=== PATIENT | female | born 1955 | race Caucasian/White ===

== ENCOUNTER 2020-08-19 19:25 | Inpatient (IN) | payer SELFPAY ==
[~2020-08-19] VITALS: Ht 162.5 cm; Wt 90.5 kg
[2020-08-19 19:33] VITALS: BP 158/70
--- NOTE | 2020-08-19 19:34 | NUR ---
PT TO WAITING ROOM AT THIS TIME.VITALS STABLE.
[2020-08-19 20:14] LABS: BASO % 0.4 % (0.0-1.0); EOS % 0.5 % (1.0-4.0); HEMATOCRIT 41.4 % (37.0-47.0); LYMPH # 0.7 10*3/uL (1.3-4.4); MEAN CELL VOLUME 92.4 fl (81.0-99.0); MEAN CORPUSCULAR HGB 30.4 pg (27.0-31.0); MEAN CORPUSCULAR HGB CONC 32.9 g/dl (33.0-37.0); MONO # 0.2 10*3/uL (0.1-1.0); NEUT # 4.7 10*3/uL (2.3-7.9); NEUT % 81.9 % (47.0-73.0); PLATELET COUNT AUTOMATED 224 10*3/uL (130-400); RED BLOOD COUNT 4.48 10*6/uL (4.10-5.10); RED CELL DISTRI WIDTH 13.8 % (0-14.5); WHITE BLOOD COUNT 5.7 10*3/uL (4.8-10.8)
[2020-08-19 20:31] LABS: ALBUMIN 3.2 gm/dl (3.1-4.5); ALKALINE PHOSPHATASE 308 U/L (45-117); BUN 22 mg/dl (7-24); CHLORIDE 109 mmol/L (98-107); CREATININE 0.89 mg/dL (0.55-1.02); LIPASE 188 U/L (73-393); POTASSIUM 4.4 mmol/L (3.5-5.1); SGOT/AST 69 IU/L (3-35); SGPT/ALT 138 U/L (12-78); SODIUM 139 mmol/L (136-145); TOTAL PROTEIN 8.6 gm/dL (6.4-8.2)
--- NOTE | 2020-08-19 21:26 | NUR ---
SPOKE WITH PTS DAUGHTER FLORENTIN PER PT REQUEST. PT HAS PURSE AND CELL PHONE.
--- NOTE | 2020-08-19 21:45 | NUR ---
PT TO CT. CONDITION STABLE.
--- NOTE | 2020-08-19 22:09 | NUR ---
RETURNED FROM CT. CONDITION STABLE. NO COMPLAINTS.
[2020-08-20] VITALS (8 sets, daily range): BP systolic 111–147; BP diastolic 50–78
--- NOTE | 2020-08-20 00:49 | NUR ---
PT MEDICATED PER EMAR FOR ITCHING. PROVIDED PT WITH ADDITIONAL BLANKETS AND A PILLOW FOR COMFORT. NO FURTHER COMPLAINTS.
--- NOTE | 2020-08-20 03:10 | NUR ---
NURSE TO NURSE REPORT GIVEN TO THIS RN.PT RESTING IN BED.IV HEPLOCK IN PLACE.DENIES ANY NEEDS AT THIS TIME.PT REFUSES TO GOWN AT THIS TIME.
--- NOTE | 2020-08-20 06:52 | NUR ---
THIS RN CALLED CONSULT FOR DR YI.WHILE SPEAKING WITH DR YI CALL WAS DISCONNECTED.AWAITING TO SEE IF DR YI RETURNS CALL.
[2020-08-20 07:54] LABS: BASO % 0.6 % (0.0-1.0); EOS # 0.1 10*3/uL (0.0-0.4); EOS % 1.1 % (1.0-4.0); LYMPH % 16.3 % (27.0-41.0); MEAN CELL VOLUME 93.2 fl (81.0-99.0); MEAN CORPUSCULAR HGB 30.5 pg (27.0-31.0); MEAN CORPUSCULAR HGB CONC 32.8 g/dl (33.0-37.0); MEAN PLATELET VOLUME 11.4 fl (9.6-12.3); MONO # 0.6 10*3/uL (0.1-1.0); MONO % 9.4 % (3.0-9.0); NEUT # 4.5 10*3/uL (2.3-7.9); NEUT % 72.3 % (47.0-73.0); PLATELET COUNT AUTOMATED 192 10*3/uL (130-400); RED BLOOD COUNT 4.29 10*6/uL (4.10-5.10); RED CELL DISTRI WIDTH 14.1 % (0-14.5); WHITE BLOOD COUNT 6.2 10*3/uL (4.8-10.8)
[2020-08-20 08:09] LABS: ALKALINE PHOSPHATASE 290 U/L (45-117); BILIRUBIN, DIRECT 6.7 mg/dL (0.0-0.2); BUN 25 mg/dl (7-24); CHLORIDE 112 mmol/L (98-107); CREATININE 0.78 mg/dL (0.55-1.02); POTASSIUM 4.2 mmol/L (3.5-5.1); SGOT/AST 73 IU/L (3-35); SGPT/ALT 142 U/L (12-78); SODIUM 141 mmol/L (136-145); TOTAL PROTEIN 7.9 gm/dL (6.4-8.2)
--- NOTE | 2020-08-20 08:30 | NUR ---
KD CALLED NO ANSWER WILL TRY AGAIN.
--- NOTE | 2020-08-20 09:15 | NUR ---
CALL PLACED TO DR. YI, NO ANSWER LEFT VOICE MAIL FOR CALL BACK, CALL PLACED TO DR. COLLINS ADVISED OF CONSULT.
--- NOTE | 2020-08-20 10:00 | NUR ---
This nurse notified Dr. Dinero of the new consult and he states he is already aware of this patient at this time.
--- NOTE | 2020-08-20 10:06 | NUR ---
This nurse spoke with Dr. Rivera and he states to keep the patient NPO for an ERCP today.
--- NOTE | 2020-08-20 11:05 | NUR ---
PT RESTING WITH HER EYES CLOSED. NO DISTRESS NOTED.
--- NOTE | 2020-08-20 12:15 | NUR ---
PT RESTING WITH HER EYES CLOSED, AWAKENS WITH CARE, PT DENIES ANY PAIN AT THIS TIME, PT WAS GIVEN A GROWN FOR HER ERCP TODAY. PT WAS WANTING TO STAY IN HER CLOTHES, PT WAS AGREEABLE.
--- NOTE | 2020-08-20 17:06 | NUR ---
SPOKE WITH SURGERY PT [facility] IN PRE-OP FOR ERCP. PT HAS A BED 506-2. SURGERY NOTFIED TO TAKE PT TO 506-2, REPORTS CALLED TO [facility].
--- NOTE | 2020-08-20 20:26 | NUR ---
Time: 1999 A 65 year old FEMALE admitted to 5E under services of IESHA MEJIA DO. Pt. arrived via bed from ER. Chief complaint: ELEVATED LFT, RASH. PT FORMS REVIEWED AND COMPLETED. CALL LIGHT SYSTEM REVIEWED AND DEMONSTRATED. PT REPORTS NO HOME MEDS HEIDI GUEVARA
--- NOTE | 2020-08-20 20:30 | NUR ---
ASSESSMENT COMPLETE SEE FLOWSHEET. SPOKE TO AND RECEIVED ORDERS FOR ERCP IN AM, NPO AFTER MIDNIGHT, AND START FLUIDS (0.9 NS) AT 100 ML/HR. CALL LIGHT IN REACH.
[2020-08-21] VITALS (9 sets, daily range): BP systolic 110–156; BP diastolic 68–93
[2020-08-21 07:06] LABS: HEP B CORE AB, IGM Negative (Negative); HEPATITIS B SURFACE AG Negative (Negative); HEPATITIS C VIRUS ANTIBODY 0.2 s/co (0.0-0.9)
--- NOTE | 2020-08-21 07:30 | NUR ---
PT RESTING IN BED. RESPS EASY AND NON LABORED. NO S/S OF DISTRESS NOTED. VSS. WHITE BOARD UPDATED. POC DISCUSSED W PT. A/O X3. REMAINS JAUNDICED. HYPOACTIVE BOWEL SOUNDS.+FLATUS.BM 08/20. IVF INFUSING W/O INCIDENT. DENIES ABD PAIN/DISCOMFORT. WILL CONTINUE TO MONITOR. CALL LIGHT WITHIN REACH.
[2020-08-21 07:40] LABS: ALBUMIN 2.9 gm/dl (3.1-4.5); BUN 27 mg/dl (7-24); CHLORIDE 112 mmol/L (98-107); CREATININE 0.77 mg/dL (0.55-1.02); POTASSIUM 3.9 mmol/L (3.5-5.1); SGOT/AST 83 IU/L (3-35); SGPT/ALT 154 U/L (12-78); SODIUM 142 mmol/L (136-145); TOTAL PROTEIN 7.3 gm/dL (6.4-8.2)
[2020-08-21 07:41] LABS: ALKALINE PHOSPHATASE 271 U/L (45-117)
--- NOTE | 2020-08-21 14:15 | NUR ---
PER DR YI ORDER MRCP FOR SUNDAY, ORDER [id number] AND CEA LEVEL.
--- NOTE | 2020-08-21 14:45 | NUR ---
PT BACK FROM SURGERY. VSS. RESPS EASY AND NON LABORED. WILL CONTINUE TO MONITOR. CALL LIGHT WITHIN REACH.
--- NOTE | 2020-08-21 17:08 | NUR ---
PT MEDICATED W ZOFRAN AND TYLENOL FOR NAUSEA AND ABD DISCOMFORT. WILL MONITOR. CALL LIGHT WITHIN REACH.
--- NOTE | 2020-08-21 18:00 | NUR ---
PT RESTING IN BED. RESPS EASY AND NON LABORED. NO S/S OF DISTRESS NOTED. CALL LIGHT WITHIN REACH.
--- NOTE | 2020-08-21 20:00 | NUR ---
ASSESSMENT COMPLETE SEE FLOWSHEET. COOPERATIVE. NO C/O VOICED. TOOK PO MEDS WITHOUT DIFFICULTY. ALL SAFETY MEASURES IN PLACE. CALL LIGHT IN REACH.
[2020-08-22] VITALS: BP 138/56
[2020-08-22 06:21] LABS: ALBUMIN 2.7 gm/dl (3.1-4.5); BILIRUBIN, DIRECT 4.5 mg/dL (0.0-0.2)
[2020-08-22 06:23] LABS: ALBUMIN 2.7 gm/dl (3.1-4.5); ALKALINE PHOSPHATASE 251 U/L (45-117); BILIRUBIN, DIRECT 4.6 mg/dL (0.0-0.2); BUN 23 mg/dl (7-24); CHLORIDE 111 mmol/L (98-107); CREATININE 0.69 mg/dL (0.55-1.02); POTASSIUM 3.9 mmol/L (3.5-5.1); SGOT/AST 72 IU/L (3-35); SGPT/ALT 140 U/L (12-78); SODIUM 141 mmol/L (136-145); TOTAL PROTEIN 6.9 gm/dL (6.4-8.2)
--- NOTE | 2020-08-22 07:30 | NUR ---
PT RESTING IN BED. RESPS EASY AND NON LABORED. NO S/S OF DISTRESS NOTED. VSS. WHITE BOARD UPDATED. POC DISCUSSED W PT. A/O X3. REMAINS JAUNDICED. NORMOACTIVE BOWEL SOUNDS. PT C/O GAS AND CRAMPS. WILL CONTINUE TO MONITOR. CALL LIGHT WITHIN REACH.
[2020-08-22 08:00] VITALS: BP 116/50
--- NOTE | 2020-08-22 09:10 | NUR ---
PT MEDICATED FOR C/O ABD DISCOMFORT. PT STATES IT HAS BEEN HURTING LIKE THIS SINCE YESTERDAY AND SHE COULDNT SLEEP ALL NIGHT. STATES THAT SHE CANNOT DESCRIBE THE PAIN BUT IT "IS KILLNG HER". WILL CONTINUE TO MONITOR FOR RELIEF. RESPS EASY AND NON LABORED. RESTING IN BED WATCHING TV. CALL LIGHT WITHIN REACH.
--- NOTE | 2020-08-22 10:10 | NUR ---
MEDICATION APPEARS EFFECTIVE. PT RESTING IN BED. WILL CONTINUE TO MONITOR. CALL LIGHT WITHIN REACH.
--- NOTE | 2020-08-22 10:19 | NUR ---
DR LOPEZ INTO SEE PT
[2020-08-22 12:00] VITALS: BP 125/60
--- NOTE | 2020-08-22 12:58 | NUR ---
Patient resting quietly with no c/o discomfort. Respirations easy and regular. Vital signs stable. No overt distress. NO S/S OF DISTRESS NOTED. SLEEPING IN ROOM. WILL CONTINUE TO MONITOR . CALL LIGHT WITHIN REACH. HISSOM,WILBUR
[2020-08-22 16:00] VITALS: BP 116/55
--- NOTE | 2020-08-22 17:43 | NUR ---
PT SITTING UP IN ROOM. RESPS EASY AND NON LABORED. NO S/S OF DISTRESS NOTED. PT STATES THAT THE DILAUDID HELPED HER ALL DAY TODAY AND THAT SHE IS NO LONGER IN PAIN AT THIS TIME. WILL CONTINUE TO MONITOR. CALL LIGHT WITHIN REACH.
--- NOTE | 2020-08-22 19:45 | NUR ---
PATIENT RESTING IN BED. DENIES ANY NEEDS/COMPLAINTS. ASSESSMENT COMPLETE. CALL LIGHT IN REACH.
[2020-08-22 20:00] VITALS: BP 113/62
[2020-08-23] VITALS: BP 143/56
--- NOTE | 2020-08-23 03:16 | NUR ---
24 HR chart check completed.
[2020-08-23 06:35] LABS: CHLORIDE 109 mmol/L (98-107); POTASSIUM 3.7 mmol/L (3.5-5.1); SODIUM 138 mmol/L (136-145)
[2020-08-23 06:44] LABS: ALBUMIN 2.6 gm/dl (3.1-4.5); ALKALINE PHOSPHATASE 233 U/L (45-117); BILIRUBIN, DIRECT 3.5 mg/dL (0.0-0.2); BUN 18 mg/dl (7-24); CREATININE 0.53 mg/dL (0.55-1.02); SGOT/AST 41 IU/L (3-35); SGPT/ALT 98 U/L (12-78); TOTAL PROTEIN 6.6 gm/dL (6.4-8.2)
--- NOTE | 2020-08-23 07:30 | NUR ---
PT RESTING IN BED. RESPS EASY AND NON LABORED. NO S/S OF DISTRESS NOTED. VSS. WHITE BOARD UPDATED. POC DISCUSSED W PT. A/O X3. JAUNDICE IMPROVED TODAY. LFT TRENDING DOWN.DENIES ABD PAIN, NO NVCD,NT,ND.NORMOACTIVE BS. BM 08/22. MRCP THIS MORNING. WILL CONTINUE TO MONITOR. CALL LIGHT WITHIN REACH. IVF INFUSING W/O INCIDENT.
[2020-08-23 08:00] VITALS: BP 124/66
--- NOTE | 2020-08-23 09:00 | NUR ---
Disk Sander in to talk to patient. Patient states lives at home with her . There are 0 steps in the home. Physician: no family physician [facility]acy: [facility] Home health services: none Patient's level of ADLs: INDEPENDENT Patient has working utilities: yes DME: none Follow-up physician's appointment after d/c: will be made by the hospitalist nurse director upon discharge Does patient want to access PORTAL?: no Discharge plan discussed with patient. She lives at home with her . She states she is independent in her ADLs and ambulation. Discussed home health care services and she declines. CM will continue to follow for any discharge planning needs. When medically stable she will be discharged to home. She states her daughter will provide transportation on discharge. HARESH SPENCE
--- NOTE | 2020-08-23 09:36 | NUR ---
PT TAKEN OFF FLOOR FOR MRCP
--- NOTE | 2020-08-23 09:45 | NUR ---
PER DR YI CALL W MRCP RESULTS.
--- NOTE | 2020-08-23 11:17 | NUR ---
DR COLLINS ON FLOOR TO SEE PT, STATES PT NEEDS TRANSFERRED. WILL PASS ALONG
--- NOTE | 2020-08-23 11:30 | NUR ---
Spoke to Cassandra in [facility] re: self pay. She states she will see patient today.
[2020-08-23 12:00] VITALS: BP 130/68
--- NOTE | 2020-08-23 14:58 | NUR ---
RADIOLOGY CALLED AGAIN REGARDING MRI NEEDING READ.
--- NOTE | 2020-08-23 15:56 | NUR ---
Patient resting quietly with no c/o discomfort. Respirations easy and regular. Vital signs stable. No overt distress. HISSOM,WILBUR
[2020-08-23 16:00] VITALS: BP 131/56
--- NOTE | 2020-08-23 17:00 | NUR ---
CALLED [facility] REGARDING MRI STILL NOT BEING READ. STATE THEY WILL HAVE IT READ.
--- NOTE | 2020-08-23 19:59 | NUR ---
24 HR chart check completed.
[2020-08-23 20:00] VITALS: BP 127/63
--- NOTE | 2020-08-23 21:00 | NUR ---
SLEEPING, AWAKENS EASILY. RESPIRATIONS EASY. LUNGS DIMINISHED, CLEAR. PULSE OX 98% RA. SCDS PRESENT AT BEDSIDE BUT NOT IN USE PER PT REQUEST. IV FLUIDS RECONNECTED AT THIS TIME AND INFUSING PER ORDER. CALL LIGHT WITHIN REACH. NO VOICED COMPLAINTS
[2020-08-24] VITALS: BP 131/60
--- NOTE | 2020-08-24 | NUR ---
SLEEPING. NO DISTRESS NOTED. RESPIRATIONS EASY. VSS. IV FLUIDS MAINTAINED. CALL LIGHT WITHIN REACH.
--- NOTE | 2020-08-24 06:00 | NUR ---
SLEPT THROUGHOUT NIGHT WITH NO DISTRESS NOTED. RESPIRATIONS EASY. IV FLUIDS MAINTAINED. CALL LIGHT WITHIN REACH. NO VOICED COMPLAINTS
[2020-08-24 08:00] VITALS: BP 139/65
--- NOTE | 2020-08-24 08:14 | NUR ---
SEUN PHAN ON FLOOR AND UPDATED ON PLAN OF CARE. SEUN PHAN WILL NOTIFY REGARDING MRCP RESULTS.
[2020-08-24 09:23] LABS: ALBUMIN 2.4 gm/dl (3.1-4.5); ALKALINE PHOSPHATASE 212 U/L (45-117); BILIRUBIN, DIRECT 2.9 mg/dL (0.0-0.2); BUN 16 mg/dl (7-24); CHLORIDE 109 mmol/L (98-107); CREATININE 0.67 mg/dL (0.55-1.02); POTASSIUM 3.4 mmol/L (3.5-5.1); SGOT/AST 45 IU/L (3-35); SGPT/ALT 87 U/L (12-78); SODIUM 140 mmol/L (136-145); TOTAL PROTEIN 6.4 gm/dL (6.4-8.2)
--- NOTE | 2020-08-24 09:23 | NUR ---
THIS NURSE CALLED REGARDING FOLLOW UP APT. FOLLOW UP APT MADE FOR NEXT FRIDAY 08/31. WILL INFORM PATIENT ONCE SHE IS DISCHARGED.
--- NOTE | 2020-08-24 09:35 | NUR ---
FOLLOW UP APT MADE WITH .
--- NOTE | 2020-08-24 10:56 | NUR ---
Discharge instructions reviewed with patient/family. Patient receptive and verbalizes understanding. Follow-up care arranged. Written instructions given to patient/family. SUNNY VO.
== END 2020-08-24 11:25 | disposition home or self-care (01) | DRG 445 ==
LOC: ED 19:25 → 5E 23:30 → EDHOLD 23:30 → 5E 23:30
PROVIDERS: Internal Medicine; Internal Medicine Gastroenterology; Physician Assistant; Registered Nurse; ADMIT Internal Medicine; ATTEND Internal Medicine
PROC: BF111ZZ Fluoroscopy of Biliary and Pancreatic Ducts using Low Osmolar Contrast (ICD-10-PCS; 2020-08-20)
PROC: 0FJB8ZZ Inspection of Hepatobiliary Duct, Via Natural or Artificial Opening Endoscopic (ICD-10-PCS; 2020-08-20)
PROC: 0F798DZ Dilation of Common Bile Duct with Intraluminal Device, Via Natural or Artificial Opening Endoscopic (ICD-10-PCS; principal; 2020-08-21)
PROC: 0FB98ZX Excision of Common Bile Duct, Via Natural or Artificial Opening Endoscopic, Diagnostic (ICD-10-PCS; 2020-08-21)
PROC: BF111ZZ Fluoroscopy of Biliary and Pancreatic Ducts using Low Osmolar Contrast (ICD-10-PCS; 2020-08-21)
DX: K80.21 Calculus of gallbladder without cholecystitis with obstruction (principal); C24.9 Malignant neoplasm of biliary tract, unspecified; K82.8 Other specified diseases of gallbladder; E80.6 Other disorders of bilirubin metabolism; E87.8 Other disorders of electrolyte and fluid balance, not elsewhere classified; R73.9 Hyperglycemia, unspecified; Z83.3 Family history of diabetes mellitus; Z80.0 Family history of malignant neoplasm of digestive organs; Z85.41 Personal history of malignant neoplasm of cervix uteri

== ENCOUNTER → 2020-08-30 | Outpatient (CLI) | payer SELFPAY ==
[2020-08-30 09:21] LABS: BASO # 0.1 10*3/uL (0.0-0.1); BASO % 0.6 % (0.0-1.0); EOS # 0.4 10*3/uL (0.0-0.4); EOS % 3.7 % (1.0-4.0); HEMATOCRIT 38.9 % (37.0-47.0); LYMPH % 21.1 % (27.0-41.0); MEAN CELL VOLUME 94.9 fl (81.0-99.0); MEAN CORPUSCULAR HGB 30.5 pg (27.0-31.0); MEAN CORPUSCULAR HGB CONC 32.1 g/dl (33.0-37.0); MEAN PLATELET VOLUME 11.1 fl (9.6-12.3); MONO # 0.7 10*3/uL (0.1-1.0); MONO % 7.2 % (3.0-9.0); NEUT # 6.3 10*3/uL (2.3-7.9); NEUT % 66.9 % (47.0-73.0); PLATELET COUNT AUTOMATED 243 10*3/uL (130-400); RED CELL DISTRI WIDTH 13.2 % (0-14.5); WHITE BLOOD COUNT 9.4 10*3/uL (4.8-10.8)
[2020-08-30 09:46] LABS: ALBUMIN 2.8 gm/dl (3.1-4.5); ALKALINE PHOSPHATASE 186 U/L (45-117); BILIRUBIN, DIRECT 1.3 mg/dL (0.0-0.2); BUN 22 mg/dl (7-24); CHLORIDE 110 mmol/L (98-107); CREATININE 0.69 mg/dL (0.55-1.02); POTASSIUM 4.2 mmol/L (3.5-5.1); SGOT/AST 35 IU/L (3-35); SGPT/ALT 69 U/L (12-78); SODIUM 140 mmol/L (136-145); TOTAL PROTEIN 7.5 gm/dL (6.4-8.2)
== END | disposition home or self-care (01) ==
LOC: LAB 08:59
PROVIDERS: ATTEND Registered Nurse
DX: K80.20 Calculus of gallbladder without cholecystitis without obstruction (principal); K82.8 Other specified diseases of gallbladder; R17 Unspecified jaundice